=== PATIENT | female | born 1990 | race African-American/Black ===

== ENCOUNTER 2018-12-30 10:23 | Emergency (ER) | payer SELFPAY ==
[~2018-12-30] VITALS: Ht 157.5 cm; Wt 71.7 kg
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
== END 2018-12-30 12:44 | disposition home or self-care (01) ==
LOC: ER 10:23
DX: S00.83XA Contusion of other part of head, initial encounter (principal); S00.81XA Abrasion of other part of head, initial encounter; S39.012A Strain of muscle, fascia and tendon of lower back, initial encounter; V43.52XA Car driver injured in collision with other type car in traffic accident, initial encounter; Y92.488 Other paved roadways as the place of occurrence of the external cause
CPT/HCPCS: 70480; 72125; 99284